=== PATIENT | female | born 1950 ===

== ENCOUNTER 2018-05-16 05:25 | Day surgery (SDC) | payer MEDICARE, OTHER ==
--- NOTE | 2018-05-14 20:30 | Pre-op HX & Phy Repo 2 SIG ---
DATE OF ADMISSION: 05/16/2018 DATE OF SURGERY: 05/16/2018. PREOPERATIVE DIAGNOSIS: Severe macular traction, left eye. BRIEF NOTE: This is the first [place] admission for this patient who is a very nice 67-year-old lady, complained of blurred vision in the left eye for several months. PAST OCULAR HISTORY: Remarkable for cataract surgery in both eyes. She has a history of diabetes with previous laser. MEDICAL HISTORY: Also remarkable for hypertension. PHYSICAL EXAMINATION: EYES: Best vision at the time of admission was 20/30 in the right eye and 20/70 in the left with pressures of 14 and 15. The anterior segment showed posterior chamber lenses in either eye well positioned. Fundus exam of the right eye showed reasonably well lasered retina that was all attached. Left fundus showed significant vitreomacular traction with a central edema. CT study done on the left eye showed a epiretinal membrane with major traction on the macula and significant elevation . ASSESSMENT: Vitreal macular traction, left eye. PLAN: The plan is to perform a pars plana vitrectomy with peeling of the epiretinal membrane and possible ILM peeling on the left eye. The risks and benefits of surgery gone over the patient with potential infection, hemorrhage, macular hole formation, remote possibility of loss of the eye. The risk of anesthesia was discussed. The patient understands and consents to the surgery, which will be performed on tomorrow morning. Orlando Bermudez M.D. DR: JUAN JOB#: [id number] CC:
[~2018-05-16] VITALS: Ht 165.1 cm; Wt 81.6 kg
[2018-05-16] VITALS (8 sets, daily range): BP systolic 115–157; BP diastolic 58–65
--- NOTE | 2018-05-16 05:39 | Pre-Procedure Note/Attestation ---
Pre-Procedure Note/Attestation Complete Prior to Procedure Planned Procedure: left Procedure Narrative: Pars plana vitrectomy, ICG assisted memrbrane peel, possible gas fluid exchange Left eye Indications for Procedure Pre-Operative Diagnosis: Vitreo-macular traction syndrome Left eye Attestation I attest that I discussed the nature of the procedure; its benefits; risks and complications; and alternatives (and the risks and benefits of such alternatives ), prior to the procedure, with the patient (or the patient's legal entry level marketing representative). I attest that, if there was a reasonable possibility of needing a blood transfusion, the patient (or the patient's legal entry level marketing representative) was given the [place] [employer] [facility] standardized written summary, pursuant to the [place] Blood Safety Act ([place] Health and Safety Code # 1645, as amended). I attest that I re-evaluated the patient just prior to the surgery and that there has been no change in the patient's H&P, except as documented below: MARGUERITE CAMPBELL May 16, 2018 05:39
[2018-05-16 06:42] LABS: ANION GAP 4 mmol/L (5-15); BLOOD UREA NITROGEN 20 mg/dL (7-18); CALCIUM 9.5 MG/DL (8.5-10.1); CARBON DIOXIDE 39 MMOL/L (21-32); CHLORIDE 100 MMOL/L (98-107); POTASSIUM 3.6 MMOL/L (3.5-5.1); SODIUM 143 MMOL/L (136-145)
[2018-05-16] MEDS ORDERED: EPINEPHrine 1mg/1ml Amp ONE (06:42)
[2018-05-16] MEDS ORDERED: BSS 500ml btl ONE (06:43)
[2018-05-16] MEDS ORDERED: BSS 15ml BTL ONE (06:43)
[2018-05-16] MEDS ORDERED: Povidone-Iodine 5% opth solution ONE (06:43)
[2018-05-16] MEDS ORDERED: Lidocaine 1% MPF 10mg/ml 5ml ONE (06:43)
[2018-05-16] MEDS ORDERED: Tobradex Opth Susp 2.5ml ONE (06:43)
[2018-05-16] MEDS ORDERED: Dexamethasone 4mg/ml vial ONE (06:43)
[2018-05-16] MEDS ORDERED: Akten 3.5% 1ml Btl ONE (06:43)
[2018-05-16] MEDS ORDERED: Tetracaine 0.5% Opth 4ml Soln ONE (06:57)
[2018-05-16] MEDS ORDERED: Kenalog-40 1ml Vial ONE (06:57)
[2018-05-16] MEDS ORDERED: Maxitrol Opth Oint 3.5gm ONE (06:57)
[2018-05-16] MEDS ORDERED: Pred Forte 1% Opth Susp 1ml ONE (06:57)
[2018-05-16] MEDS ORDERED: Kenalog-10 5ml Inj ONE (06:57)
[2018-05-16] MEDS ORDERED: Sodium Hyaluronate 10 mg/ml 0.85ml ONE (06:58)
[2018-05-16] MEDS ORDERED: Bupivacaine 0.75% 30ml vial INJ ONE (06:58)
[2018-05-16] MEDS ORDERED: Pred Forte 1% Opth Susp 1ml LEFT EYE SCH (07:00)
[2018-05-16] MEDS: Flurbiprofen 0.03% Opth Sol 2.5ml LEFT EYE SCH ×3 (07:36→07:56)
[2018-05-16] MEDS: Phenylephrine 2.5% Op 2ml Soln LEFT EYE SCH ×3 (07:36→07:56)
[2018-05-16] MEDS: Vigamox Opth Soln 3ml LEFT EYE SCH ×3 (07:36→07:56)
[2018-05-16] MEDS: Cyclopentolate 1% Opth Sol 2ml LEFT EYE SCH ×3 (07:36→07:56)
[2018-05-16] MEDS ORDERED: PAPAYA ENZYME1 EACH PO (08:05)
[2018-05-16] MEDS ORDERED: DOCUSATE SODIU100 M2 ORAL (08:05)
[2018-05-16] MEDS ORDERED: OMEPRAZOLE40 M1 ORAL (08:05)
[2018-05-16] MEDS ORDERED: LEVEMIR FL100 UNIT/2 SQ (08:05)
[2018-05-16] MEDS ORDERED: VITAMIN D22000 UNIT PO (08:05)
[2018-05-16] MEDS ORDERED: ASPIR 8181 MG ORAL (08:05)
[2018-05-16] MEDS ORDERED: MIRTAZAPINE7.5 MG ORAL (08:05)
[2018-05-16] MEDS ORDERED: COREG12.5 MG ORAL (08:05)
[2018-05-16] MEDS ORDERED: ATORVASTATIN CA20 MG ORAL (08:05)
[2018-05-16] MEDS ORDERED: VASCEPA1 GM PO (08:05)
[2018-05-16] MEDS ORDERED: VITAMIN B12-FO1 EAC1 PO (08:05)
[2018-05-16] MEDS ORDERED: METOCLOPRAMIDE H5 M1 ORAL (08:05)
[2018-05-16] MEDS ORDERED: LISINOPRIL5 MG ORAL (08:05)
[2018-05-16] MEDS ORDERED: MAGNESIUM OXID400 M1 ORAL (08:05)
[2018-05-16] MEDS ORDERED: FUROSEMIDE40 MG ORAL (08:05)
[2018-05-16] MEDS ORDERED: CREON DR 12,001 EACH PO (08:05)
[2018-05-16] MEDS ORDERED: NOVOLOG100 UNIT/4 SQ (08:08)
[2018-05-16] MEDS ORDERED: Propofol 200mg/20ml IV ONE ×2 (08:57→10:39)
[2018-05-16] MEDS ORDERED: Sterile Water Irrig 1000ml IRRIG ONE (09:00)
[2018-05-16] MEDS ORDERED: LR 1000ml ONE (09:00)
[2018-05-16] MEDS ORDERED: fentaNYL 100 mcg/2 mL IV ONE (09:00)
[2018-05-16] MEDS ORDERED: Midazolam 2mg/2ml Inj ONE (09:00)
[2018-05-16] MEDS ORDERED: NS Irrig 1000ml ONE (09:00)
--- NOTE | 2018-05-16 09:29 | Anethesia Preoperative Eval ---
Anesthesia Pre-op PMH/ROS General Date of Evaluation: May 16, 2018 Time of Evaluation: 09:27 Anesthesiologist: ken ASA Score: ASA 3 Mallampati Score Class I : Soft palate, uvula, fauces, pillars visible Class II: Soft palate, uvula, fauces visible Class III: Soft palate, base of uvula visible Class IV: Only hard plate visible Mallampati Classification: Class III Surgeon: marco Diagnosis: vitrectomy Surgical Procedure: left eye vitrectomy Anesthesia History: none Family History: no anesthesia problems Allergies: Coded Allergies: No Known Allergies (Unverified , 05/16/18) Medications: see eMAR Past Medical History Cardiovascular: Reports: HTN, CAD Pulmonary: Denies: asthma, COPD, SCOTTY, other Gastrointestinal/Genitourinary: Reports: CRI, ESRD; Denies: GERD, other Endocrine: Reports: DM HEENT: Reports: cataract (R) Hematology/Immune: Denies: anemia, DVT, bleeding disorder, other Other: obesity PSxH Narrative: cataract surgery Anesthesia Pre-op Phys. Exam Physician Exam Last Vital Signs Date Time Temp Pulse Resp B/P (MAP) Pulse Ox O2 Delivery O2 Flow Rate FiO2 05/16/18 07:51 97.1 66 18 130/64 (86) 96 97.1 05/16/18 07:41 Room Air Constitutional: NAD Neurologic: CN 2-12 intact Cardiovascular: RRR Respiratory: CTA Gastrointestinal: S/NT/ND Airway Exam Mallampati Classification 3 Mallampati Score: Class III MO: limited Neck: thick TMD: 1fb ROM: full Dentures: no upper, no lower Anesthesia Pre-op A/P Labs Chemistry Test 05/16/18 06:00 Sodium Level 143 MMOL/L (136-145) Potassium Level 3.6 MMOL/L (3.5-5.1) Chloride Level 100 MMOL/L (98-107) Carbon Dioxide Level 39 MMOL/L (21-32) H Anion Gap 4 mmol/L (5-15) L Blood Urea Nitrogen 20 mg/dL (7-18) H Creatinine 4.0 MG/DL (0.55-1.30) H Estimat Glomerular Filtration Rate 11.1 mL/min (>60) Glucose Level 64 MG/DL (74-106) L Calcium Level 9.5 MG/DL (8.5-10.1) Studies Pre-op Studies: EKG Risk Assessment & Plan Assessment: denies changes in health last two weeks Plan: mac Status Change Before Surgery: No Pre-Antibiotics Drug: declined Lauren James CRNA May 16, 2018 09:29
[2018-05-16] MEDS ORDERED: Indocyanine Green 25mg Inj INJ ONE (09:30)
--- NOTE | 2018-05-16 10:40 | Brief Operative Note ---
Immediate Post Operative Note Operative Note Pre-op Diagnosis: Vitreo-macular traction syndrome Left eye Procedure: PPV, ICG assisted ILM and membrane peel, Endolaser 1547 spots, Kenalog injection , Gas-Fluid exchange SF-6 24% Post-op Diagnosis: Blurring of vision Left eye Post-op Diagnosis: same as pre-op plus - Suspected macular hole Surgeon: marco Loan Clerk: none Anesthesia: MAC Specimen: none Complications: none Condition: stable Fluids: per anesthesia Drains: none Implant(s) used?: No MARGUERITE CAMPBELL May 16, 2018 10:40
[2018-05-16] MEDS ORDERED: acetaZOLAMIDE 500mg Sequel ORAL SCH (10:45)
--- NOTE | 2018-05-16 10:48 | Immediate Post-Op Evaluation ---
Immediate Post-Op Evalulation Immediate Post-Op Evalulation Procedure: left eye vitrectomy Date of Evaluation: May 16, 2018 Time of Evaluation: 10:48 IV Fluids: 400 Blood Products: Estimated Blood Loss: Blood Pressure Systolic: 140 Blood Pressure Diastolic: 61 Pulse Rate: 65 Respiratory Rate: 14 O2 Sat by Pulse Oximetry: 99 Nausea: No Vomiting: No Complications none Patient Status: awake, reacts, patent Hydration Status: adequate Drug: none Lauren James CRNA May 16, 2018 10:48
--- NOTE | 2018-05-16 12:39 | 48 Hour Post Anesthesia Eval ---
Post Anesthesia Evaluation Procedure: left eye vitrectomy Date of Evaluation: May 16, 2018 Time of Evaluation: 12:39 Blood Pressure Systolic: 115 0: 60 Pulse Rate: 51 Respiratory Rate: 14 O2 Sat by Pulse Oximetry: 99 Airway: patent Nausea: No Vomiting: No Hydration Status: adequate Cardiopulmonary Status: stable Mental Status/LOC: patient returned to baseline Post-Anesthesia Complications: none Follow-up care needed: N/A Lauren James CRNA May 16, 2018 12:39
[2018-05-16] MEDS ORDERED: Norco 5mg/325mg tab ORAL PRN (14:00)
--- NOTE | 2018-05-16 16:30 | Operative Note - Dictated ---
DATE OF OPERATION: 05/16/2018 PREOPERATIVE DIAGNOSIS: Vitreomacular traction, left eye. POSTOPERATIVE DIAGNOSIS: Vitreomacular traction, left eye with macular hole and mild vitreous hemorrhage. PROCEDURES PERFORMED: 1. Pars plana vitrectomy. 2. Membrane peel. 3. ICG-assisted ILM peel. 4. Endolaser. 5. Kenalog injection. 6. Gas fluid exchange, left eye. SURGEON: Orlando Bermudez M.D. WELL LOGGING CAPTAIN: None. ANESTHESIA: Local with sedation. JUSTIFICATION FOR SURGERY: This is a 67-year-old lady with a long history of diabetes and diabetic retinopathy noted a significant fall off in the visual acuity in the left eye. She was found to have a significant area of vitreomacular traction and a possible macular hole as well as a [id number] vitreous hemorrhage. BRIEF NOTE: The patient was brought to the operative room and placed on OR table in supine position. After a time-out was performed and agreed upon by the staff, an initial monitoring was secured by anesthesia, retrobulbar and Van Lint blocks were given in the standard way. When the blocks have taken effect, she was prepped and draped in the normal manner. A lid speculum was inserted into the left eye. Using a 23-gauge trocar system, cannulas were placed in all except infranasal quadrant. Infusion secured inferotemporally. Vitrectomy was begun posterior to the lens implant. Kenalog was used to aid in visualization of the vitreous. A central core vitrectomy was done followed by peripheral vitrectomy leaving a small vitreous skirt. There was thickened posterior hyaloid with significant attachment to the macula. This was carefully dissected cleanly and removed from the eye. A posterior viewing lens was inserted and there appeared to be the cystic changes and a possible presence of a macular hole. Because of this finding, it was elected to proceed as the macular hole were present. ICG dye diluted in dextrose 5% was placed into the posterior pole, 1 drop and staining of the ILM temporally was made. The material was quickly evacuated from the eye. Using ILM forceps, the ILM was engaged temporal to the macula and gently peeled in a circular fashion leaving an area roughly 3 disc diameters in size clean. No problems were encountered at the site of the potential macular hole. Additional vitrectomy was completed removing adherent vitreous 360 degrees that was tightly bound to the retina mainly in the periphery near the equator and beyond. This was done without difficulty. The endolaser was brought into the eye and small bleeders were lasered directly. Additional laser was placed in the far periphery where treatment was noted to be light. A total of 1547 lesions were applied. At this juncture, an air-fluid exchange was performed followed by a gas-gas exchange introducing a mixture of 24% SF6. This went without difficulty with the eye being left normotensive. The superior cannulas removed and each sclerotomy closed with 8-0 Vicryl suture. The infusion cannula was removed and this was gently closed with 8-0 Vicryl. Subconjunctival Celestone and gentamicin were then injected and Maxitrol ointment, atropine drops, prednisolone drops, and moxifloxacin drops were instilled. The eye was patched and shielded and the patient was taken to recovery in excellent condition to be placed in a face-down position. There were no complications, but please note that after a macular hole was suspected, appropriate treatment was instituted. Orlando Bermudez M.D. DR: ORIN JOB#: [id number] CC: Orlando Bermudez M.D.; Fax#: [phone]
--- NOTE | 2018-05-18 13:49 | Cardiology Report ---
APPROVED REPORT EKG Measurement Heart [id number] ND [id number] Normal sinus rhythm Normal ECG
== END 2018-05-16 11:40 | disposition home or self-care (01) ==
LOC: SUR 05:25
DX: H43.822 Vitreomacular adhesion, left eye (principal); H35.342 Macular cyst, hole, or pseudohole, left eye; E10.319 Type 1 diabetes mellitus with unspecified diabetic retinopathy without macular edema; Z79.4 Long term (current) use of insulin; H43.12 Vitreous hemorrhage, left eye; E11.22 Type 2 diabetes mellitus with diabetic chronic kidney disease; I12.0 Hypertensive chronic kidney disease with stage 5 chronic kidney disease or end stage renal disease; N18.6 End stage renal disease; Z99.2 Dependence on renal dialysis; K21.9 Gastro-esophageal reflux disease without esophagitis; M19.90 Unspecified osteoarthritis, unspecified site; D64.9 Anemia, unspecified
CPT/HCPCS: 36415; 67042; 80048; 82962; 93005; J0171; J1100; J2250; J2704; J3010; J3301; J3470; J3490; J7120; 94003; 94150